=== PATIENT | male | born 1965 | race Caucasian/White ===

== ENCOUNTER 2021-03-26 18:03 | Outpatient (CLI) | payer OTHER ==
--- NOTE | 2021-03-27 13:27 | XRAY Report ---
PROCEDURE: Lumbar Spine 2 View INDICATIONS: LOW BACK PAIN TECHNIQUE: 3 views of the lumbar spine were acquired. COMPARISON: None. FINDINGS: Bones: 3 views of the lumbar spine demonstrate multilevel degenerative changes. There is facet arthro sis in the lower lumbar spine. Anterior osteophytes are noted at multiple levels. No vertebral body h eight loss. Intervertebral disc spaces are normal. Soft tissues: Overlying bowel gas pattern is normal. No suspicious soft tissue calcifications. IMPRESSION: 1. Multilevel degenerative changes spanning from L3 through S1. 2. 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 Reviewed by: Garrett Garcia on 03/27/2021 1:26 PM PDT Approved by: Garrett Garcia on 03/27/2021 1:26 PM PDT Station ID: [id number]
== END 2021-03-26 23:59 | disposition home or self-care (01) ==
LOC: DI.N 18:03
PROVIDERS: ATTEND Nurse Practitioner
DX: M47.816 Spondylosis without myelopathy or radiculopathy, lumbar region (principal); M47.817 Spondylosis without myelopathy or radiculopathy, lumbosacral region

== ENCOUNTER 2023-09-28 12:26 | Outpatient (CLI) | payer OTHER ==
--- NOTE | 2023-09-28 18:10 | XRAY Report ---
PROCEDURE: Shoulder 2+V RT INDICATIONS: OTHER SPRAIN OF RIGHT SHOULDER JOINT TECHNIQUE: 3 views of the shoulder were acquired. COMPARISON: None. FINDINGS: Bones: No fractures or dislocations. No suspicious bony lesions. Visualized ribs appear intact. Soft tissues: No suspicious soft tissue calcifications. The visualized lungs are within normal limi ts. IMPRESSION: No acute bony abnormality. If pain persists with conservative management, consider repeat radiographs in 10-14 days or cross-sectional imaging. Reviewed by: Renard Youssef MD on 09/28/2023 6:09 PM PDT Approved by: Renard Youssef MD on 09/28/2023 6:09 PM PDT Station ID: [id number]
== END 2023-09-28 12:27 | disposition home or self-care (01) ==
LOC: DI.N 12:26
PROVIDERS: ATTEND Internal Medicine
DX: S43.491A Other sprain of right shoulder joint, initial encounter (principal)